=== PATIENT | male | born 1995 | race Caucasian/White ===

== ENCOUNTER → 2020-07-20 | Outpatient (CLI) | payer OTHER ==
--- NOTE | 2020-07-23 10:19 | ECHO ---
ECHOCARDIOGRAM DATE OF PROCEDURE: 07/20/2020 Age: Gender: Height: 70 inches Weight: 200 pounds REFERRING INDIVIDUAL: MALIK Cullen. INDICATION: Chest pain, unspecified. MEASUREMENTS: 2D Measurements: Left atrium 3.2 cm Interventricular septum 0.84 cm Posterior wall 0.91 cm Left ventricle diastole 4.6 cm Right ventricle 4.5 cm Left atrium volume index 230 cm Inferior vena cava 1.7 cm (normal respiratory variation) Doppler Measurements: Aortic valve velocity 118 cm/s No aortic regurgitation Trace mitral regurgitation Mitral E velocity 85.3 cm/s Mitral A velocity 36.7 cm/s Mitral deceleration time 148 msec Trace tricuspid regurgitation No pulmonic regurgitation Pulmonary artery acceleration time 137 msec DESCRIPTION: Rhythm was sinus bradycardia. Image quality was fair. This was a 2D, M-mode, color flow Doppler, and pulsed wave Doppler examination including mitral annular tissue Doppler. CONCLUSIONS: 1. Normal echocardiogram Doppler. 2. Normal left ventricle internal dimensions and wall thickness. Normal regional LV wall motion and wall thickening. Normal LV systolic function. LVEF 60% by visual estimate. Supra-normal LV diastolic function. 3. No pericardial effusion. 4. Suggestive of normal pulmonary systolic pressure.
== END ==
LOC: M CARPUL 11:20
PROVIDERS: ATTEND Nurse Practitioner Primary Care
DX: R07.9 Chest pain, unspecified (principal)

== ENCOUNTER 2021-09-16 13:37 | Inpatient (IN) | payer OTHER ==
[~2021-09-16] VITALS: Ht 177.8 cm; Wt 80.3 kg
[2021-09-16] MEDS ORDERED: NOXI1TAB PO (13:54)
[2021-09-16] MEDS ORDERED: MIRT1TAB16 PO (13:54)
[2021-09-16 14:46] LABS: HEMATOCRIT 42.4 % (42.0-52.0); HEMOGLOBIN 13.9 g/dl (13.5-17.5); MEAN CORPUSCULAR HEMOGLOBIN 29.4 pg (27.0-33.0); MEAN CORPUSCULAR HGB CONC 32.8 g/dl (32.0-36.5); MEAN CORPUSCULAR VOLUME 89.8 fl (80.0-96.0); PLATELET COUNT, AUTOMATED 284 10^3/uL (150-450); RED BLOOD COUNT 4.72 10^6/uL (4.30-6.10); WHITE BLOOD COUNT 10.1 10^3/uL (4.0-10.0)
[2021-09-16 15:17] LABS: BLOOD UREA NITROGEN 9 MG/DL (7-18); GLUCOSE, FASTING 88 MG/DL (70-100)
[2021-09-16 15:18] LABS: ACETAMINOPHEN LEVEL < 2.0 UG/ML (10.0-30.0); ALBUMIN 4.3 GM/DL (3.2-5.2); ALT/SGPT 19 U/L (12-78); BILIRUBIN,DIRECT 0.1 MG/DL (0.0-0.2); BILIRUBIN,TOTAL 0.4 MG/DL (0.2-1.0); CALCIUM LEVEL 9.2 MG/DL (8.5-10.1); CARBON DIOXIDE LEVEL 30 MEQ/L (21-32); CHLORIDE LEVEL 109 MEQ/L (98-107); ETHYL ALCOHOL (ETHANOL) < 0.003 % (0.000-0.010); GLOMERULAR FILTRATION RATE > 60.0 (>60); POTASSIUM SERUM 4.1 MEQ/L (3.5-5.1); SALICYLATE LEVEL < 1.7 MG/DL (5.0-30.0); SODIUM LEVEL 142 MEQ/L (136-145); THYROID STIMULATING HORMONE 0.929 uIU/ML (0.358-3.740)
[2021-09-16 15:22] LABS: RSV AMPLIFICATION NEGATIVE (NEGATIVE)
[2021-09-16 15:51] LABS: AMPHETAMINES LEVEL URINE NEGATIVE (NEGATIVE); BARBITURATES URINE NEGATIVE (NEGATIVE); BENZODIAZEPINES URINE NEGATIVE (NEGATIVE); CANNABINOIDS URINE POSITIVE (NEGATIVE); COCAINE METABOLITE URINE NEGATIVE (NEGATIVE); METHADONE URINE NEGATIVE (NEGATIVE); OPIATES URINE NEGATIVE (NEGATIVE); PHENCYCLIDINE URINE NEGATIVE (NEGATIVE)
[2021-09-16] MEDS ORDERED: MIRT-11 PO (16:33)
[2021-09-16] MEDS ORDERED: VITA100093 PO (16:33)
[2021-09-16] MEDS ORDERED: HOME MED LIST COMPLETE! XX SCH (16:35)
[2021-09-16] MEDS ORDERED: MOM 30ML SUSPENSION UDC PO PRN (19:30)
[2021-09-16] MEDS ORDERED: MAALOX 30 ML SUSP *UDC PO PRN (19:30)
[2021-09-16] MEDS ORDERED: OLANZapine ORAL DISINTEGRATING TAB 5MG PO PRN (19:30)
[2021-09-16] MEDS ORDERED: ACETAMINOPHEN TAB 650MG DOSE (2X325MG) PO PRN (19:30)
[2021-09-16] MEDS ORDERED: MIRTAZAPINE 15 MG TAB PO SCH (21:00)
[2021-09-16] MEDS: MIRTAZAPINE 15 MG TAB PO SCH (22:15)
[2021-09-16] MEDS: VITAMIN D 1,000 INTERNATIONAL UNITS TABLET PO SCH (22:15)
[2021-09-16 23:15] VITALS: BP 124/58
[2021-09-17 06:22] VITALS: BP 111/61
[2021-09-17] MEDS ORDERED: BENZTROPINE 1 MG TAB PO PRN (13:40)
[2021-09-17 17:54] VITALS: BP 119/59
[2021-09-17] MEDS ORDERED: risperiDONE 1 MG TAB PO SCH (21:00)
[2021-09-17] MEDS: DOCUSATE SODIUM 100MG CAPSULE PO SCH (21:58)
[2021-09-17] MEDS: VITAMIN D 1,000 INTERNATIONAL UNITS TABLET PO SCH (21:59)
[2021-09-17] MEDS: MIRTAZAPINE 15 MG TAB PO SCH (21:59)
[2021-09-18 06:27] VITALS: BP 122/55
[2021-09-18] MEDS: DOCUSATE SODIUM 100MG CAPSULE PO SCH ×2 (08:33→20:39)
[2021-09-18 08:47] LABS: CHOLESTEROL RISK RATIO 2.755 (<5)
[2021-09-18 17:39] VITALS: BP 126/62
[2021-09-18] MEDS: MIRTAZAPINE 15 MG TAB PO SCH (20:40)
[2021-09-18] MEDS: VITAMIN D 1,000 INTERNATIONAL UNITS TABLET PO SCH (20:40)
[2021-09-19 06:48] VITALS: BP 133/58
[2021-09-19] MEDS: DOCUSATE SODIUM 100MG CAPSULE PO SCH ×2 (08:57→20:24)
[2021-09-19 16:36] VITALS: BP 138/79
[2021-09-19] MEDS: MIRTAZAPINE 15 MG TAB PO SCH (20:24)
[2021-09-19] MEDS: VITAMIN D 1,000 INTERNATIONAL UNITS TABLET PO SCH (20:25)
[2021-09-20 06:29] VITALS: BP 135/62
[2021-09-20] MEDS: DOCUSATE SODIUM 100MG CAPSULE PO SCH ×2 (09:40→20:10)
[2021-09-20 17:20] VITALS: BP 116/55
[2021-09-20] MEDS: VITAMIN D 1,000 INTERNATIONAL UNITS TABLET PO SCH (20:10)
[2021-09-20] MEDS: MIRTAZAPINE 15 MG TAB PO SCH (20:10)
[2021-09-21 06:53] VITALS: BP 110/56
[2021-09-21] MEDS: DOCUSATE SODIUM 100MG CAPSULE PO SCH ×2 (09:48→20:33)
[2021-09-21 16:54] VITALS: BP 129/60
[2021-09-21] MEDS: VITAMIN D 1,000 INTERNATIONAL UNITS TABLET PO SCH (20:32)
[2021-09-21] MEDS: MIRTAZAPINE 15 MG TAB PO SCH (20:33)
[2021-09-21] MEDS: traZODone 50 MG TAB PO PRN (20:33)
[2021-09-22 06:41] VITALS: BP 119/59
[2021-09-22] MEDS: DOCUSATE SODIUM 100MG CAPSULE PO SCH ×2 (08:57→20:40)
[2021-09-22 16:57] VITALS: BP 124/62
[2021-09-22] MEDS: VITAMIN D 1,000 INTERNATIONAL UNITS TABLET PO SCH (20:41)
[2021-09-22] MEDS: MIRTAZAPINE 15 MG TAB PO SCH (20:41)
[2021-09-22] MEDS: traZODone 50 MG TAB PO PRN (21:14)
[2021-09-23 06:49] VITALS: BP 122/58
[2021-09-23] MEDS: DOCUSATE SODIUM 100MG CAPSULE PO SCH ×2 (09:20→20:25)
[2021-09-23 13:45] LABS: ALBUMIN 4.1 GM/DL (3.2-5.2); ALT/SGPT 19 U/L (12-78); BILIRUBIN,TOTAL 0.2 MG/DL (0.2-1.0); BLOOD UREA NITROGEN 16 MG/DL (7-18); CALCIUM LEVEL 9.2 MG/DL (8.5-10.1); CARBON DIOXIDE LEVEL 29 MEQ/L (21-32); CHLORIDE LEVEL 106 MEQ/L (98-107); CREATININE FOR GFR 0.93 MG/DL (0.70-1.30); GLOMERULAR FILTRATION RATE > 60.0 (>60); GLUCOSE, FASTING 91 MG/DL (70-100); POTASSIUM SERUM 4.5 MEQ/L (3.5-5.1); SODIUM LEVEL 141 MEQ/L (136-145); TOTAL PROTEIN 7.2 GM/DL (6.4-8.2)
[2021-09-23 18:15] VITALS: BP 109/59
[2021-09-23] MEDS: VITAMIN D 1,000 INTERNATIONAL UNITS TABLET PO SCH (20:26)
[2021-09-23] MEDS: MIRTAZAPINE 15 MG TAB PO SCH (20:26)
[2021-09-24 06:38] VITALS: BP 125/69
[2021-09-24] MEDS ORDERED: traZODone 100 MG TAB PO PRN (08:40)
[2021-09-24] MEDS: DOCUSATE SODIUM 100MG CAPSULE PO SCH ×2 (09:27→20:36)
[2021-09-24 18:12] VITALS: BP 121/67
[2021-09-24] MEDS: VITAMIN D 1,000 INTERNATIONAL UNITS TABLET PO SCH (20:36)
[2021-09-24] MEDS: MIRTAZAPINE 15 MG TAB PO SCH (20:37)
[2021-09-25 06:27] VITALS: BP 123/68
[2021-09-25] MEDS: DOCUSATE SODIUM 100MG CAPSULE PO SCH ×2 (09:32→20:19)
[2021-09-25 18:25] VITALS: BP 125/56
[2021-09-25] MEDS: QUEtiapine FUMARATE 50MG TAB PO SCH (20:19)
[2021-09-25] MEDS: MIRTAZAPINE 15 MG TAB PO SCH (20:19)
[2021-09-25] MEDS: VITAMIN D 1,000 INTERNATIONAL UNITS TABLET PO SCH (20:19)
[2021-09-26 06:58] VITALS: BP 127/60
[2021-09-26] MEDS: DOCUSATE SODIUM 100MG CAPSULE PO SCH ×2 (09:39→20:19)
[2021-09-26 19:20] VITALS: BP 130/80
[2021-09-26] MEDS: MIRTAZAPINE 15 MG TAB PO SCH (20:19)
[2021-09-26] MEDS: VITAMIN D 1,000 INTERNATIONAL UNITS TABLET PO SCH (20:19)
[2021-09-26] MEDS: QUEtiapine FUMARATE 50MG TAB PO SCH (20:19)
[2021-09-27 06:55] VITALS: BP 118/58
[2021-09-27] MEDS: DOCUSATE SODIUM 100MG CAPSULE PO SCH ×2 (09:35→20:43)
[2021-09-27 18:02] VITALS: BP 117/66
[2021-09-27] MEDS: QUEtiapine FUMARATE 50MG TAB PO SCH (20:43)
[2021-09-27] MEDS: MIRTAZAPINE 15 MG TAB PO SCH (20:43)
[2021-09-27] MEDS: VITAMIN D 1,000 INTERNATIONAL UNITS TABLET PO SCH (20:43)
[2021-09-28 06:51] VITALS: BP 121/73
[2021-09-28] MEDS: DOCUSATE SODIUM 100MG CAPSULE PO SCH ×2 (08:53→20:59)
[2021-09-28 18:06] VITALS: BP 140/73
[2021-09-28] MEDS: VITAMIN D 1,000 INTERNATIONAL UNITS TABLET PO SCH (20:59)
[2021-09-28] MEDS: QUEtiapine FUMARATE 50MG TAB PO SCH (20:59)
[2021-09-28] MEDS: MIRTAZAPINE 15 MG TAB PO SCH (20:59)
[2021-09-29 06:37] VITALS: BP 122/67
[2021-09-29] MEDS: DOCUSATE SODIUM 100MG CAPSULE PO SCH ×2 (08:50→20:38)
[2021-09-29 18:02] VITALS: BP 136/78
[2021-09-29] MEDS: VITAMIN D 1,000 INTERNATIONAL UNITS TABLET PO SCH (20:38)
[2021-09-29] MEDS: QUEtiapine FUMARATE 50MG TAB PO SCH (20:38)
[2021-09-29] MEDS: MIRTAZAPINE 15 MG TAB PO SCH (20:38)
[2021-09-30 06:32] VITALS: BP 120/84
[2021-09-30] MEDS: DOCUSATE SODIUM 100MG CAPSULE PO SCH (08:27)
[2021-09-30] MEDS ORDERED: TRAZ-257 PO (08:38)
[2021-09-30] MEDS ORDERED: HALO10TA20 PO (08:38)
[2021-09-30] MEDS ORDERED: QUET100T2 PO (08:38)
[2021-09-30] MEDS ORDERED: MIRT1TAB16 PO (08:38)
== END 2021-09-30 12:07 | disposition home or self-care (01) | DRG 885 ==
LOC: M ED 13:37 → M ED INP 19:26 → M PSY 21:48
PROVIDERS: ADMIT Student in an Organized Health Care Education/Training Program; ATTEND Student in an Organized Health Care Education/Training Program
DX: F25.0 Schizoaffective disorder, bipolar type (principal); F12.10 Cannabis abuse, uncomplicated; F17.290 Nicotine dependence, other tobacco product, uncomplicated; G47.00 Insomnia, unspecified; R45.850 Homicidal ideations; K59.00 Constipation, unspecified; Z62.810 Personal history of physical and sexual abuse in childhood; Z63.0 Problems in relationship with spouse or partner; Z79.899 Other long term (current) drug therapy

== ENCOUNTER → 2022-08-13 | Outpatient (REF) | payer OTHER ==
[~2022-08-13] MED LIST: HALO10TA20 PO; MIRT-11 PO; MIRT1TAB16 PO; NOXI1TAB PO; QUET100T2 PO; TRAZ-257 PO; VITA100093 PO
== END ==
LOC: M LABSMT 09:55
PROVIDERS: ATTEND Urology
DX: Z30.2 Encounter for sterilization (principal)
CPT/HCPCS: 55250; 88302; S0020

== ENCOUNTER → 2022-10-10 | Outpatient (REF) | payer OTHER ==
[2022-10-10 12:29] LABS: SEMEN APPEARANCE OPAQUE (OPAQUE); SEMEN VISCOSITY LIQUID (LIQUID); WBC CONCENTRATION <=1 M/ml (<=1 M/ml)
== END ==
LOC: M SMT 11:59
PROVIDERS: ATTEND Urology
DX: Z30.2 Encounter for sterilization (principal)

== ENCOUNTER 2025-01-04 17:50 | Emergency (ER) | payer OTHER ==
[~2025-01-04 17:50] MED LIST changes: +CIPR7.5D2 OTIC; +CVS5000S2 PO; +MELO15TA28 PO; +OMEG10002 PO; +SERT-141 PO
[2025-01-04 18:17] LABS: BASO # 0.1 10^3/uL (0.0-0.2); BASO % 0.8 % (0.0-1.0); EOS # 0.5 10^3/uL (0.0-0.5); EOS % 4.5 % (0.0-3.0); LYMPH # 3.7 10^3/uL (1.5-5.0); LYMPH % 34.9 % (24.0-44.0); MONO # 0.7 10^3/uL (0.0-0.8); MONO % 6.6 % (2.0-8.0); NEUTROPHILS # 5.7 10^3/uL (1.5-8.5); NEUTROPHILS % 52.6 % (36.0-66.0); PLATELET COUNT, AUTOMATED 314 10^3/uL (150-450)
[2025-01-04 18:50] LABS: CALCIUM LEVEL 8.6 MG/DL (8.5-10.1); CARBON DIOXIDE LEVEL 28 MMOL/L (20-31); CHLORIDE LEVEL 102 MMOL/L (98-107); CK-MB VALUE MASS 1.8 NG/ML (<3.6); CREATININE FOR GFR 0.94 MG/DL (0.70-1.30); GLOMERULAR FILTRATION RATE > 90.0 (>60); POTASSIUM SERUM 4.2 MMOL/L (3.5-5.1); SODIUM LEVEL 141 MMOL/L (136-145)
[2025-01-04 18:52] LABS: CPK CREATINE PHOSPHOKINASE 163 U/L (46-171); MB/CK RELATIVE INDEX 1.10 (< OR =4)
[2025-01-04] MEDS ORDERED: ISOVUE-370 76% 100 ML VIAL As Ordered ONE (19:09)
[2025-01-04 19:59] LABS: CK-MB VALUE MASS 1.6 NG/ML (<3.6)
[2025-01-04 20:02] LABS: CPK CREATINE PHOSPHOKINASE 143 U/L (46-171); MB/CK RELATIVE INDEX 1.11 (< OR =4)
[2025-01-04 20:22] VITALS: BP 127/87; TEMP 97.6; O2SAT 95
== END 2025-01-04 20:25 | disposition home or self-care (01) ==
LOC: M ED 17:50
DX: R07.9 Chest pain, unspecified (principal); Z79.2 Long term (current) use of antibiotics; Z79.899 Other long term (current) drug therapy
CPT/HCPCS: 36415; 71045; 71275; 80048; 82550; 82553; 84484; 85025; 93005; 93041; 94760; 99285; Q9967

== ENCOUNTER → 2025-02-07 | Outpatient (CLI) | payer OTHER | LOC: M SLEEP 20:00 | PROVIDERS: ATTEND Nurse Practitioner Family | DX: G47.33 Obstructive sleep apnea (adult) (pediatric) (principal) ==